=== PATIENT | male | born 1950 | race Caucasian/White ===

== ENCOUNTER 2018-08-08 10:49 | Observation (INO) | payer OTHER, BC ==
--- NOTE | 2018-08-08 10:59 | EDPHY ---
H & P Time Seen by Provider: 08/08/18 10:58 HPI/ROS: CHIEF COMPLAINT: Left arm and leg numbness, left leg weakness HISTORY OF PRESENT ILLNESS: Last felt normal at 7:00 a.m.. [place] like he was leaning a bit to the left walking to his shop. Little bit of numbness and tingling on the left side both arm and leg. Not associated with speech difficulty or headache or difficulty with balance. He says he has a little bit of dizziness. No neck pain. Symptoms mild, not better or worse with anything. REVIEW OF SYSTEMS: Eye: no change in vision ENT: no sore throat Cardiac: no chest pain or syncope Pulmonary: no cough or SOB Abdomen: no vomiting, diarrhea, abdominal pain Musculoskeletal: no back pain Skin: no rash Neuro: no headache Constitutional: no fever : no urinary symptoms A comprehensive 10 point review of systems is otherwise negative aside from elements mentioned in the history of present illness. PAST MEDICAL HISTORY: negative Social history: negative General Appearance: Alert and conversant, cooperative. Eyes: No scleral icterus. ENT, Mouth: Normal mucous membranes. Respiratory: Normal respiratory effort, breath sounds equal, lungs are clear to auscultation. Cardiovascular: Regular rate and rhythm. Gastrointestinal: Abdomen soft nontender Neurological: Alert, face symmetric, speech fluent. He is ambulatory without ataxia back to the room. He has some decreased sensation to light touch in his left forearm and left leg but 5/5 strength in deltoids triceps bicep wrist extensors and intrinsic of both hands and 5/5 strength in dorsiflexion and plantar flexion of both feet and extension and flexion of both knees. Skin: Warm and dry, no rashes. Musculoskeletal: No peripheral edema. Psychiatric: Not agitated. Emergency Department course/MDM: Patient was made a stroke alert from triage. I discussed the patient that I would not recommend giving him IV Activase given that on initial physical examination I cannot detect objective deficit. I feel that potential risk from that medication would exceed benefit in this case and the patient is in agreement. Therefore CT angiography is performed with the initial imaging studies.Discussed with Dr. Mtz from [place] 1113am agrees with no IV tPA given neurologic exam, CT/CTA. 1123: Normal CT CT per Dr. Alma Mccormick. Admission for further stroke workup recommended. Results discussed with the patient and with Dr. Solorzano at this time. He recommends oral aspirin if passes swallow study. Of note the patient says he did have an episode of rapid heart rate palpitations just a couple of days ago. Constitutional: Initial Vital Signs Temperature (C) 36.9 C 08/08/18 10:54 Heart Rate 56 L 08/08/18 10:54 Respiratory Rate 16 08/08/18 10:54 Blood Pressure 162/104 H 08/08/18 10:54 O2 Sat (%) 97 08/08/18 10:54 O2 Delivery Mode Room Air Allergies/Adverse Reactions: No Known Allergies Allergy (Verified 08/08/18 12:05) Home Medications: Medication Instructions Recorded Acetaminophen [Tylenol 325mg (*)] 325 mg PO Q6 PRN 08/08/18 Medical Decision Making - Diagnostics EKG Interpretation: 12-lead EKG interpreted by me; official reading is in computer system. My interpretation is sinus rhythm with LVH rate 52 Imaging Results: Imaging Impressions Head CT 08/08/18 11:08 Impression: Normal. No evidence for acute or subacute stroke. Findings and recommendations discussed with BRYAN IBRAHIM at 11:22 AM hour, 2018. Final report concurs with initial preliminary interpretation. Head CTA 08/08/18 11:08 Impression: Nothing acute. Findings and recommendations discussed with Dr. Bryan Ibrahim at 1122 hours on August 08, 2018. Final report concurs with initial preliminary interpretation. Neck CTA 08/08/18 11:08 Impression: Normal. Findings and recommendations discussed with BRYAN IBRAHIM at 11:22 AM hour, 2018. Final report concurs with initial preliminary interpretation. Note: All stenoses are calculated using NASCET Criteria. Imaging: Discussed imaging studies w/ call center recruiter Radiologist Differential Diagnosis: Differential considered including but not limited to spinal cord problem or transverse myelitis, TIA, stroke, peripheral nerve issue Consult/Admit Bed Type: [facility] for Dr. Franklin 5303 Critical Care Time: Critical care time spent by me, Dr. Ibrahim, exclusively with the care of this patient was 30 minutes, exclusive of PA or COMPUTER TRAINER time and exclusive of separate procedures. The organ system at risk was neurologic and I ordered multiple diagnostics and specialist consultation. - Data Points Laboratory Results: Laboratory Results 08/08/18 11:04 08/08/18 11:04 08/08/18 08/08/18 08/08/18 11:09 11:06 11:04 WBC RBC Hgb POC Hgb 16.7 gm/dL gm/dL (13.7-17.5) Hct POC Hct 49 % % (40-51) MCV MCH MCHC RDW Plt Count MPV Neut % (Auto) Lymph % (Auto) Williams % (Auto) Eos % (Auto) Baso % (Auto) Nucleat RBC Rel Count Absolute Neuts (auto) Absolute Lymphs (auto) Absolute Monos (auto) Absolute Eos (auto) Absolute Basos (auto) Absolute Nucleated RBC Immature Gran % Immature Gran # PT INR POC Sodium 142 mEq/L mEq/L (135-145) Sodium 140 mEq/L mEq/L (135-145) POC Potassium 4.1 mEq/L mEq/L (3.3-5.0) Potassium 4.3 mEq/L mEq/L (3.5-5.2) POC Chloride 104 mEq/L mEq/L (97-110) Chloride 104 mEq/L mEq/L (97-110) Carbon Dioxide 26 mEq/l mEq/l (22-31) POC Total CO2 26 mEq/L mEq/L (22-31) Anion Gap 10 mEq/L mEq/L (6-14) POC BUN 21 mg/dL mg/dL (7-23) BUN 21 mg/dL mg/dL (7-23) Creatinine 1.0 mg/dL mg/dL (0.7-1.3) POC Creatinine 1.0 mg/dL mg/dL (0.7-1.3) Estimated GFR > 60 Glucose 110 mg/dL H mg/dL (70-100) POC Glucose 115 mg/dL H mg/dL (70-100) Calcium 9.9 mg/dL mg/dL (8.5-10.4) POC Troponin I 0.01 ng/mL ng/mL (0.00-0.08) 08/08/18 08/08/18 11:04 11:04 WBC 5.18 10^3/uL 10^3/uL (3.80-9.50) RBC 5.28 10^6/uL 10^6/uL (4.40-6.38) Hgb 15.3 g/dL g/dL (13.7-17.5) POC Hgb Hct 47.5 % % (40.0-51.0) POC Hct MCV 90.0 fL fL (81.5-99.8) MCH 29.0 pg pg (27.9-34.1) MCHC 32.2 g/dL L g/dL (32.4-36.7) RDW 13.9 % % (11.5-15.2) Plt Count 254 10^3/uL 10^3/uL (150-400) MPV 10.8 fL fL (8.7-11.7) Neut % (Auto) 64.4 % % (39.3-74.2) Lymph % (Auto) 23.2 % % (15.0-45.0) Williams % (Auto) 10.6 % % (4.5-13.0) Eos % (Auto) 1.2 % % (0.6-7.6) Baso % (Auto) 0.4 % % (0.3-1.7) Nucleat RBC Rel Count 0.0 % % (0.0-0.2) Absolute Neuts (auto) 3.34 10^3/uL 10^3/uL (1.70-6.50) Absolute Lymphs (auto) 1.20 10^3/uL 10^3/uL (1.00-3.00) Absolute Monos (auto) 0.55 10^3/uL 10^3/uL (0.30-0.80) Absolute Eos (auto) 0.06 10^3/uL 10^3/uL (0.03-0.40) Absolute Basos (auto) 0.02 10^3/uL 10^3/uL (0.02-0.10) Absolute Nucleated RBC 0.00 10^3/uL 10^3/uL (0-0.01) Immature Gran % 0.2 % % (0.0-1.1) Immature Gran # 0.01 10^3/uL 10^3/uL (0.00-0.10) PT 13.0 SEC SEC (12.0-15.0) INR 1.02 (0.83-1.16) POC Sodium Sodium POC Potassium Potassium POC Chloride Chloride Carbon Dioxide POC Total CO2 Anion Gap POC BUN BUN Creatinine POC Creatinine Estimated GFR Glucose POC Glucose Calcium POC Troponin I Medications Given: Discontinued Medications Aspirin (Aspirin) 324 mg PO EDNOW ONE Stop: 08/08/18 11:58 Last Admin: 08/08/18 12:00 Dose: 324 mg Point of Care Test Results: Chemistry 08/08/18 08/08/18 11:09 11:06 POC Sodium 142 mEq/L mEq/L (135-145) POC Potassium 4.1 mEq/L mEq/L (3.3-5.0) POC Chloride 104 mEq/L mEq/L (97-110) POC Total CO2 26 mEq/L mEq/L (22-31) POC BUN 21 mg/dL mg/dL (7-23) POC Creatinine 1.0 mg/dL mg/dL (0.7-1.3) POC Glucose 115 mg/dL H mg/dL (70-100) POC Troponin I 0.01 ng/mL ng/mL (0.00-0.08) ISTAT H&H 08/08/18 11:09 POC Hgb 16.7 gm/dL gm/dL (13.7-17.5) POC Hct 49 % % (40-51) Departure - Departure Disposition: [facility] Inpatient Acute Clinical Impression: Left-sided weakness Condition: Good
[2018-08-08 11:20] LABS: PLATELET COUNT 254 10^3/uL (150-400)
[2018-08-08 11:31] LABS: INR 1.02 (0.83-1.16)
--- NOTE | 2018-08-08 11:42 | CPEKG ---
Test Reason : OPEN Blood Pressure : / mmHG Vent. Rate : 052 BPM Atrial Rate : 050 BPM P-R Int : 173 ms QRS Dur : 092 ms QT Int : 438 ms P-R-T Axes : 059 055 052 degrees QTc Int : 408 ms Sinus rhythm Probable left ventricular hypertrophy ST elevation, consider anterior injury Confirmed by Bryan Ibrahim ([id number]) on 08/08/2018 11:42:03 AM Referred By: BRYAN IBRAHIM Confirmed By:Bryan Ibrahim
[2018-08-08] MEDS ORDERED: ASPIRIN 81 MG CHEWABLE TAB PO ONE (11:57)
[2018-08-08] MEDS ORDERED: ONDANSETRON DISINTEGRATING 4 MG TAB PO PRN (12:00)
[2018-08-08] MEDS ORDERED: ONDANSETRON 4 MG/2 ML VIAL IVP PRN (12:00)
[2018-08-08] MEDS ORDERED: ACETAMINOPHEN 325 MG TAB PO PRN (12:00)
[2018-08-08] MEDS ORDERED: LABETALOL HCL 5 MG/ML 20 ML MDV IVP PRN (12:53)
--- NOTE | 2018-08-08 13:16 | GHP ---
[f rep st] HISTORY AND PHYSICAL DATE OF ADMISSION: 08/08/2018 CHIEF COMPLAINT: Falling to the left side, gait instability. HISTORY OF PRESENT ILLNESS: A pleasant 67-year-old male with no significant past medical history, pr esenting with imbalance and left leg weakness. He awoke this morning at 5:30, had coffee and cereal without issue. 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 Denied any overt weakness or dysarthria. He has noticed hav ing a loss of balance over the last few weeks, but has not fallen. This morning his left leg was gaby gging. He has noted some trouble expressing himself over the last couple of weeks. For instance, la st night he had a friend over and was trying to describe something but it took quite some time to get the words out. He runs a 10 K 2-3 times a week without chest pain or shortness of breath. Yesterda y, he noticed an episode of palpitations in which his heart rate did not return to normal and this is uncommon for him. No dizziness or lightheadedness. Denies fevers, chills, or sweats. No nausea, v omiting, or diarrhea. REVIEW OF SYSTEMS: I completed a 10-point review of systems, negative except as noted in HPI. PAST MEDICAL HISTORY: None. PAST SURGICAL HISTORY: Appendectomy. SOCIAL HISTORY: Lives in [facility] [place] [facility]. 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 Drinks a beer daily. No tobacco or i llicits. FAMILY HISTORY: No strokes. Father with heart failure. Brother with prostate cancer. PHYSICAL EXAMINATION: VITAL SIGNS: Temperature 37.2, blood pressure 169/89, repeat 137/80, heart ra te in the 50s, respirations 16, 96% on room air. GENERAL: He is well appearing, no acute distress. HEENT: PERRLA. Moist mucous membranes. CARDIOVASCULAR: [place], but regular. No murmurs, gallops, or rubs. LUNGS: Clear. ABDOMEN: Soft, nontender. : No Mclean. MUSCULOSKELETAL: 5/5 upper an d lower extremity strength. NEUROLOGIC: 2 through 12 intact. No dysarthria. PSYCH: Alert and pamela ented x3. LABS: WBC 5, hemoglobin 15, hematocrit 47, platelets 254. Coags within normal. Sodium 142, potassi um 4.1, chloride 105, carbon dioxide 26, creatinine 1.0, glucose 115. Troponin 0.00. Head CT negative. Head and neck CTA negative. EKG personally reviewed. Bradycardia, ST-elevation 3-4, LVH. ASSESSMENT/PLAN: 1. Left-sided weakness/gait instability: Concern for transient ischemic attack versus stroke. Init ial head/neck CTA unremarkable. Check MRI echocardiogram. Monitor on telemetry. PT, OT, and Speech to evaluate. Start a baby aspirin. Check lipids. May benefit from a Holter monitor. 2. Hypertension: Has normalized. Will monitor closely. 3. Diet regular . 4. Deep venous thrombosis, SCDs. DISPOSITION: Observation admission given concern for TIA or stroke, warranting further imaging and N eurology evaluation. /[id number]/MODL
--- NOTE | 2018-08-08 18:08 | GCON ---
[f rep st] CONSULTATION NEUROLOGY CONSULTATION REFERRING PHYSICIAN: Marlene Franklin MD CHIEF COMPLAINT: Numbness. HISTORY OF PRESENT ILLNESS: The patient is a very pleasant 67-year-old gentleman who is a lifelong runner and a very fit and active gentleman. 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 Yesterday, he went on a 6-mile run and had a nice evening with friends. This morning, he woke up feeling a little lightheaded or had been feeling a little lightheaded for a couple days prior. He then noticed while working in his workshop that he felt suddenly numb in the left arm and left leg and felt like he was listing to the left side. He denies any weakness, mainly a purely sensory syndrome in the left arm, left leg, but not in the left face. No language symptoms. No visual loss. No neglect. He came to the emergency department, had a full stroke evaluation with our ED and telemedicine. Based on the history and his exam findings, he was not considered to be a tPA candidate. CT of the head and neck were essentially normal. There was no large vessel occlusion. He was admitted for further evaluation. The patient does not take any medications at baseline. He does not take an anti-platelet agent. He has had some palpitations, he thinks in the last weeks. REVIEW OF SYSTEMS: A 10-point review of systems was done and only pertinent to the HPI. For past medical history, social history, family history, home medications, and allergies, see Dr. Franklin's H and P. PHYSICAL EXAM: VITAL SIGNS: Blood pressure is 126/60, temperature is 36.6, heart rate 50s to 60s. GENERAL: In no acute distress. Very pleasant. NEUROLOGIC: On higher mental function, normal. No aphasia. Cranial nerve exam normal 2 through 7, 11 and 12. Motor exam: Normal strength, tone, reflexes throughout. Sensory exam: Normal to light touch in all 4 extremities. Coordination is normal in upper and lower extremities. IMPRESSION/PLAN: 1. Numbness. The patient's sudden onset left arm and left leg numbness may represent a small vessel lacunar-type infarct. Other possibilities include cervical degenerative disk disease. We discussed at length. Going forward, I recommend and agree with a full stroke evaluation including MRI brain without contrast, echocardiogram with bubble study and ECG monitoring. I also recommend anti- platelet therapy and statin therapy at this point. Going forward, if the transient ischemic attack is cryptogenic, then we would recommend Plavix 75 mg daily plus aspirin 81 mg for 21 days, then 81 mg of aspirin indefinitely. We discussed potential risks, benefits and alternatives of dual and single antiplatelet therapy including the risk of bleeding and bruising. He will need outpatient ECG monitoring to screen for PAF. We will follow up on the above. No further recommendations now. Thank you for the consultation. Please do not hesitate to call if there are any questions or changes in this patient's neurologic status. Seventy total minutes floor time; over 50% in direct counseling and coordination of care. /[id number]/MODL MTDD
--- NOTE | 2018-08-08 19:37 | ECHO ---
[email or web address] [address] Main: [phone] Echocardiography Examination Transthoracic Name: AIME INGRAM MR#: [id number] Study Date: 08/08/2018 Study Time: 03:02 PM Date of : 1950 Age: 67 year(s) Height: 167.6 cm (66 in.) Weight: 54.43 kg (120 lb.) BSA: 1.61 m2 Gender: Male Examination: Echo with Agitated Saline Contrast: I.V. dose of agitated saline Image Quality: Adequate Rhythm: Normal sinus rhythm Heart Rate: 54 bpm BP: /63 mmHg Indication: left sided weakness Procedure Staff Referring Physician: Cathode Maker: Pamella Petit [facility] Reading Physician: Cheryl Hill MD Requesting Provider: Ordering Physician: Marlene Franklin Indication: left sided weakness Measurements Chambers AV/MV Label Value Normal Value Label Value Normal Value LVOT Vmax 0.91 m/s (0.7m/s - 1.1m/s) AV PGmax 6 mmHg LVOTd 2 cm (1.9cm - 2.1cm) AV Vmax 1.23 m/s LVDd, 2D 4.1 cm (4.2cm - 5.9cm) MELA (Vmax) 2.3 cm2 LVDs, 2D 2.7 cm (2.1cm - 4cm) MV E Vmax 0.8 m/s IVSd, 2D 0.8 cm (0.6cm - 1.1cm) MV A Vmax 0.59 m/s LVPWd, 2D 0.7 cm (0.6cm - 1cm) MV E/A 1.36 LVEF, BP 72 % (55% - 70%) MV E/E' lateral 5.6 LVEF, 2D 64 % (54% - 74%) MV E/E' septal 9.6 (0.45 - 1.25) RVDd, 2D 3.6 cm (1.9cm - 3.8cm) MV DT 158 ms TAPSE 2.7 cm MV E' septal 0.08 m/s LA Volume, BP 43 ml (18ml - 58ml) MV E' lateral 0.14 m/s LADs, 2D 3.2 cm (3cm - 4cm) MV E/E' mean 7.27 LAESV index, BP 26.7 ml/m2 MV E' mean 0.11 m/s RA Area 15.8 cm2 TV/PV Additional Vessels Label Value Normal Value Label Value Normal Value PV PGmax 3 mmHg AoAsc 3.1 cm PV Vmax, Caliper 0.92 m/s (0.6m/s - 0.9m/s) AoRoot, 2D 2.9 cm (1.4cm - 2.6cm) Patient: AIME INGRAM Study Date: 08/08/2018 Page 1 of 3 03:02 PM Conclusions 1. The left ventricle is normal in size and systolic function. Ejection fraction is 72%. Normal wall motion and normal diastolic function. 2. there is mildly increased right ventricular wall thickness. The RV cavity size is normal with normal RV systolic function. 3. Negative bubble study 4. mild mitral regurgitation. 5. Trivial tricuspid regurgitation. Unable to assess PA systolic pressure. 6. no previous echo Findings Left Ventricle: Left ventricle is normal in size. Normal global systolic left ventricular function. EF evaluated by EF (biplane Killian's). The ejection fraction, measured by Simpsons method, is 72 %. EF range is estimated at 70 % - 75 %. Left ventricle wall thickness is normal. There are no regional wall motion abnormalities. Left ventricular diastolic function parameters are normal. Right Ventricle: Normal size right ventricle. Right ventricular wall thickness is mildly increased. Right ventricular systolic function is normal. Left Atrium: The left atrium is normal in size. IAS: An agitated saline study was performed and was negative for intracardiac shunting. Right Atrium: The right atrium is normal in size. Mitral Valve: Mitral valve appears structurally normal. Mild mitral regurgitation. No mitral valve stenosis. Aortic Valve: The aortic valve is structurally normal and trileaflet. No aortic valve regurgitation. There is no aortic stenosis. Tricuspid Valve: Tricuspid valve leaflets are structurally normal. Trivial tricuspid regurgitation. Pulmonary artery pressure cannot be assessed due to inadequate TR signal. Pulmonic Valve: Pulmonic leaflets are structurally normal. No pulmonic valve regurgitation is evident. Aorta: The aortic root size in 2D measures 2.9 cm. The aortic root exhibits normal size. The ascending aorta measures 3.1 cm. Ascending aorta is normal in size. Aorta Measurements AoRoot, 2D is 2.9 cm. IVC: The inferior vena cava is dilated. The respirophasic change in diameter is more than 50%. Pericardium: No pericardial effusion. Exam Details Procedure Ordered: Echo with Agitated Saline Procedure Status: Routine study Image Quality: Adequate Contrast: I.V. dose of agitated salineIntravenous contrast was administered to evaluate intracardiac shunting Facility Location: Cardiac Echo 1 Patient: AIME INGRAM Study Date: 08/08/2018 Page 2 of 3 03:02 PM (No Signature Object) Patient: AIME INGRAM Study Date: 08/08/2018 Page 3 of 3 03:02 PM [id number]
[2018-08-09] MEDS ORDERED: ASPIRIN 81 MG CHEWABLE TAB PO SCH (09:00)
--- NOTE | 2018-08-09 10:22 | NEUROPROG ---
Assessment: 1. Numbness, resolved Patient's MRI brain showed no acute infarct. Echocardiogram did not show any intracardiac thrombus. No [id number] shunt The numbness is completely resolved. 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 We discussed the differential diagnosis may be TIA verses cervicogenic symptomatology Going forward, I recommend we complete the TIA treatment and workup as following : 1. Dual anti-platelet therapy for 21 days. Plavix 75 mg plus aspirin 81 mg daily for 21 days; then discontinue Plavix continue aspirin indefinitely. 2. Outpatient cardiology consult and 30 day event monitor screen for paroxysmal atrial fibrillation. Implantable loop monitor could be considered after that if negative. 3. Follow-up with Neurology in 8-12 weeks to review the above outpatient workup ; and at that point we may evaluate further with MRI cervical spine. Patient will likely discharge home later today. We will sign off and follow up as needed. Please do not hesitate to call for any questions or changes in neurologic symptoms. We appreciate the consultation. 35 total minutes floor time; over 50% counseling and coordination of care. Subjective: Symptoms have resolved Objective: Vital Signs Temp Pulse Resp BP Pulse Ox 36.5 C 48 L 17 133/66 H 95 08/09/18 07:44 08/09/18 07:44 08/09/18 07:44 08/09/18 07:44 08/09/18 07:44 08/08/18 08/09/18 08/10/18 05:59 05:59 05:59 Intake Total 900 500 Output Total 200 Balance 700 500 PT 13.0 SEC (12.0-15.0) 08/08/18 11:04 INR 1.02 (0.83-1.16) 08/08/18 11:04 Awake and alert No motor or sensory deficits No aphasia Allergies/Adverse Reactions: No Known Allergies Allergy (Verified 08/08/18 12:05)
--- NOTE | 2018-08-09 10:28 | CPEKG ---
Test Reason : OPEN Blood Pressure : / mmHG Vent. Rate : 047 BPM Atrial Rate : 047 BPM P-R Int : 173 ms QRS Dur : 081 ms QT Int : 462 ms P-R-T Axes : 070 067 055 degrees QTc Int : 409 ms Sinus bradycardia Probable left ventricular hypertrophy ST elevation, suggests early repolarization Confirmed by Erick Hernandez ([id number]) on 08/09/2018 10:28:26 AM Referred By: Marlene Franklin Confirmed By:Erick Hernandez
--- NOTE | 2018-08-09 11:04 | ASMTLACE ---
LACE Length of stay for Answers: 1 day current admission Acuity / Level of Answers: No Care: Did the patient have an inpatient admission? Comorbidities - select Answers: Other Notes: TIA all that apply # of Emergency department Answers: 1-2 visits in the last 6 months Score: 3 Date Signed: 08/09/2018 11:03 AM Electronically Signed By:Maddy George RN
--- NOTE | 2018-08-09 11:08 | ASMTCMCOM ---
CM Note CM Note Notes: Pt admitted to L sided weakness. Symptoms have resolved, may have had a TIA. Pt is normally very active and lives at home with his . Pt will dc today with support of and f/u outpt with cardiology. No other needs identified, CM available should his needs change. DC Plan: Independent Date Signed: 08/09/2018 11:07 AM Electronically Signed By:Maddy George RN
[2018-08-09] MEDS ORDERED: CLOPIDOGREL BISULFATE 75 MG TAB PO SCH (11:30)
[2018-08-09 11:31] VITALS: BP 133/78
--- NOTE | 2018-08-09 16:21 | PDDCSUM ---
Discharge Summary Discharge Summary: Discharge diagnosis Left-sided weakness Gait instability/ataxia Hypertension Possible TIA The patient is a healthy 59-year-old male who presented with acute onset of left -sided weakness with gait instability. CT head was obtained which showed no acute bleed. CTA head and neck, MRI brain, echocardiogram were all obtained with no abnormality. He was monitored on telemetry which showed no arrhythmias and no paroxysmal atrial fibrillation. Neurology was consulted who recommended starting aspirin 81 mg with Plavix 75 mg for 21 days, followed by aspirin 81 mg indefinitely. It was recommended that a event monitor be placed to determine if the patient was having paroxysmal AFib. Cardiology was contacted and the patient was given an event monitor prior to discharge and was set up for follow- up with them. He was also instructed to follow up with Neurology in approximately 8 weeks. His symptoms had essentially resolved and he was feeling better on the day of discharge. Disposition Home independent New medications Aspirin 81 mg indefinitely Plavix 75 mg for 21 days Follow-up Cardiology for evaluation of his event monitor Neurology for follow-up of his neurologic deficits.
== END 2018-08-09 12:13 | disposition home or self-care (01) ==
LOC: F3N 12:43
PROVIDERS: ADMIT Internal Medicine; ATTEND Internal Medicine
DX: R20.2 Paresthesia of skin (principal); R53.1 Weakness; R26.0 Ataxic gait
CPT/HCPCS: 70450; 70496; 70498; 70551; 92523; 93005; 93306; 97116; 97161; 97165; 99291; G0378; 82435-PO; 82565-PO; 82947-PO; 84132-PO; 84295-PO; 84484-ER; 84520-PO; 85014-ER